=== PATIENT | male | born 1955 | race Caucasian/White ===

== ENCOUNTER 2018-09-02 07:11 | Day surgery (SDC) | payer BC ==
[2018-08-28 14:46] VITALS: BMI 26.1
[~2018-09-02 07:11] MED LIST: LACTATED RINGERS 1,000 ML IV SCH; LIDOCAINE 1% 20 ML VIAL (10MG/ML) FOR IV START INTRADERMA PRN
[2018-09-02 07:44] LABS: Glucose,Whole Blood 184 mg/dL (75-99)
[2018-09-02 07:49] VITALS: RESP 16; TEMP 97.8
[2018-09-02] MEDS ORDERED: MIDAZOLAM 2 MG/2 ML VIAL ONE (08:07)
[2018-09-02] MEDS ORDERED: fentaNYL (PF) 50 MCG/ML 2 ML AMP ONE (08:07)
[2018-09-02] MEDS ORDERED: PROPOFOL 10 MG/ML 20 ML VIAL IV ONE (08:07)
--- NOTE | 2018-09-02 08:21 | P.PCN ---
Date of Procedure: 09/02/18 Procedure(s) Performed: BRIEF HISTORY: Patient is a 63-year-old, pleasant, white male, scheduled for an upper endoscopy with dilation as a part of evaluation of progressive dysphagia to solids for the last few months duration. He had an upper endoscopy dilation done in 2015 cm to have a distal esophageal stricture. PROCEDURE PERFORMED: Esophagogastroduodenoscopy with dilation. PREOPERATIVE DIAGNOSIS: Progressive dysphagia to solids. IV sedation per anesthesia. PROCEDURE: After informed consent was obtained, the patient was brought into the endoscopy unit. IV sedation was administered by Anesthesia under continuous monitoring. Initially the Olympus GIF-140 video endoscope was inserted into the mouth. Esophagus intubated without any difficulty. It was gradually advanced into the stomach and duodenum and carefully examined. The bulb and the second part of the duodenum appeared normal. The scope at this time was withdrawn to the stomach, adequately insufflated with air, and upon careful examination, mucosa of the antrum, body, cardia and the fundus appeared normal. There are multiple gastric polyps noted in the body of the stomach and a biopsy. Also there was retained food in the stomach suggestive of gastroparesis. The scope was then withdrawn into the esophagus. The GE junction was located at 39 cm from the incisors. There was a distal esophageal stricture identified and this was dilated using 15-16.5 mm TTS sequential fashion 60 seconds. Point this there was some oozing identified and hence further dilation was not performed. The rest of the esophagus appeared normal. There were no erosions or ulcerations seen and the patient tolerated the procedure well. IMPRESSION: 1. Distal esophageal stricture status post balloon dilation using 15 and 16.5 mm TTS balloon as described above. 2. Multiple small gastric polyps 3. Retained food in the stomach suggestive of gastroparesis. RECOMMENDATIONS: The findings of this examination were discussed with the patient as well as his family. He will continue with Prilosec 20 mg daily and follow antireflux measures. He will remain on a clear liquid diet today. He was advised to continue on Prilosec 20 mg daily and follow antireflux measures. He'll be seen in the office in 3 months.
[2018-09-02 08:41] VITALS: BP 102/66; PULSE 69
== END 2018-09-02 09:08 | disposition home or self-care (01) ==
LOC: ORWHC2ENDO 07:11
PROVIDERS: ATTEND Internal Medicine Gastroenterology
DX: K22.2 Esophageal obstruction (principal); K31.7 Polyp of stomach and duodenum; K21.0 Gastro-esophageal reflux disease with esophagitis; I10 Essential (primary) hypertension; E11.9 Type 2 diabetes mellitus without complications; Z79.899 Other long term (current) drug therapy; Z79.84 Long term (current) use of oral hypoglycemic drugs
CPT/HCPCS: 43249; 43239; J2250; J3010; J2704; C1726; 88305

== ENCOUNTER 2019-01-21 17:12 | Emergency (ER) | payer BC ==
[2019-01-21 17:18] VITALS: RESP 18
[2019-01-21] MEDS ORDERED: SODIUM CHLORIDE 0.9% 1,000 ML IV STA ×2 (17:34→19:45)
--- NOTE | 2019-01-21 17:55 | ED ---
General Adult HPI - General Chief complaint: Dizziness Stated complaint: Syncope Time Seen by Provider: 01/21/19 17:19 Source: patient, EMS Mode of arrival: EMS Limitations: no limitations - History of Present Illness Initial comments: Dictation was produced using [employer] dictation software. please excuse any grammatical, word or spelling errors. Chief Complaint: 63-year-old male presents with nausea vomiting and presyncope. History of Present Illness: Patient is a 63-year-old male he was brought in by EMS for feelings of presyncope, nausea and vomiting. Patient laid 18 holes of golf via walking. Patient states that about 15 whole he began feeling faint. It was really hot outside. Patient began trying to stay hydrated. Patient is a history of diabetes. He drank several ounces of Gatorade to try to alleviate her symptoms. EMS was called patient is brought to the emergency department. Since being in emergency department patient feels fine. Patient has no other complaints at this time. He feels well currently. The ROS documented in this emergency department record has been reviewed and confirmed by me. Those systems with pertinent positive or negative responses have been documented in the HPI. All other systems are other negative and/or noncontributory. PHYSICAL EXAM: General Impression: Alert and oriented x3, not in acute distress HEENT: Normocephalic atraumatic, extra-ocular movements intact, pupils equal and reactive to light bilaterally, mucous membranes moist. Cardiovascular: Heart regular rate and rhythm, S1&S2 audible, no murmurs, rubs or gallops Chest: Lungs clear to auscultation bilaterally, no rhonchi, no wheeze, no rales Abdomen: Bowel sounds present, abdomen soft, non-tender, non-distended, no organomegaly Musculoskeletal: Pulses present and equal in all extremities, no peripheral edema Motor: no focal deficits noted Neurological: CN II-XII grossly intact, no focal motor or sensory deficits noted Skin: Intact with no visualized rashes Psych: Normal affect and mood ED course: 63-old no clinical presentation consistent with heat exhaustion. As upon arrival are within acceptable limits. Patient is not febrile and vital signs are stable. Mentating appropriately. Physical examination is benign. Patient given 1 L of normal saline. Labs were obtained. Metabolic panel shows creatinine 2.04 with a BUN of 23. Given clinical presentation is concerning for acute kidney injury. Last creatinine was 2013. This is elevated compared to last check. Clinical presentation is concerning for prerenal azotemia. Labs were discussed with patient. He feels comfortable going home to follow-up with his primary care doctor for outpatient management of acute kidney injury. Patient given on the pedal of normal saline. Patient still to maintain good hydration. His report that he can follow up with his primary care physician tomorrow. Patient is understandable and agreeable to disposition. Return parameters discussed. EKG interpretation: Ventricular rate 77, normal sinus rhythm,. Interval 128, QRS duration 84, QTc 441. No DE prolongation, no QTC prolongation, no ST or T- wave changes noted. Overall, this EKG is unremarkable - Related Data Home Medications Medication Instructions Recorded Confirmed Glimepiride [Amaryl] 4 mg PO BID 02/07/14 01/21/19 metFORMIN HCL [metFORMIN HCL ER] 1,000 mg PO BID 02/07/14 01/21/19 Dulaglutide [Trulicity] 1.5 mg SQ CUELLO 08/28/18 01/21/19 Enalapril Maleate [Vasotec] 10 mg PO HS 08/28/18 01/21/19 Hydrochlorothiazide [Hydrodiuril] 25 mg PO DAILY 08/28/18 01/21/19 Omeprazole [PriLOSEC] 20 mg PO AC-BRKFST 08/28/18 01/21/19 Cholecalciferol (Vitamin D3) 2,000 unit PO HS 01/21/19 01/21/19 [Vitamin D3] [place]-3 Fatty Acids/Fish Oil [Fish 1 cap PO HS 01/21/19 01/21/19 Oil 1,000 mg Softgel] Allergies Allergy/AdvReac Type Severity Reaction Status Date / Time No Known Allergies Allergy Verified 01/21/19 18:24 Review of Systems ROS Statement: Those systems with pertinent positive or pertinent negative responses have been documented in the HPI. ROS Other: All systems not noted in ROS Statement are negative. Past Medical History Past Medical History: Diabetes Mellitus, GERD/Reflux, Hypertension, Skin D isorder Additional Past Medical History / Comment(s): diff swallowin/choking on food, psoriasis, History of Any Multi-Drug Resistant Organisms: None Reported Past Surgical History: Appendectomy, Hernia Repair, Tonsillectomy Additional Past Surgical History / Comment(s): colonoscopy Past Anesthesia/Blood Transfusion Reactions: No Reported Reaction Past Psychological History: No Psychological Hx Reported Smoking Status: Never smoker Past Alcohol Use History: None Reported Past Drug Use History: None Reported - Past Family History Sister(s) Family Medical History: Cancer General Exam Limitations: no limitations Course Vital Signs 01/21/19 01/21/19 01/21/19 17:14 17:48 19:02 Temperature 98.4 F Pulse Rate 68 75 72 Respiratory 18 18 18 Rate Blood Pressure 111/65 121/83 152/84 O2 Sat by Pulse 99 98 96 Oximetry Medical Decision Making - Lab Data Result diagrams: 01/21/19 18:56 Lab Results 01/21/19 Range/Units 18:56 Sodium 140 (137-145) mmol/L Potassium 4.1 (3.5-5.1) mmol/L Chloride 103 (98-107) mmol/L Carbon Dioxide 24 (22-30) mmol/L Anion Gap 13 mmol/L BUN 23 H (9-20) mg/dL Creatinine 2.04 H (0.66-1.25) mg/dL Est GFR (CKD-EPI)AfAm 40 (>60 ml/min/1.73 sqM) Est GFR (CKD-EPI)NonAf 34 (>60 ml/min/1.73 sqM) Glucose 297 H (74-99) mg/dL Calcium 9.8 (8.4-10.2) mg/dL Disposition Clinical Impression: Dehydration, Heat exhaustion, MARTITA (acute kidney injury) Disposition: HOME SELF-CARE Condition: Fair Instructions (If sedation given, give patient instructions): Acute Kidney Injury (DC) Is patient prescribed a controlled substance at d/c from ED?: No Referrals: Nikos Vergara MD [Primary Care Provider] - 1-2 days Time of Disposition: 19:47
[2019-01-21 19:27] LABS: Calcium 9.8 mg/dL (8.4-10.2); Potassium 4.1 mmol/L (3.5-5.1)
[2019-01-21 21:18] VITALS: BP 146/82; PULSE 70; TEMP 97.8
== END 2019-01-21 21:18 | disposition home or self-care (01) ==
LOC: EC 17:12
DX: T67.5XXA Heat exhaustion, unspecified, initial encounter (principal); E86.0 Dehydration; N17.9 Acute kidney failure, unspecified; R11.2 Nausea with vomiting, unspecified; E11.9 Type 2 diabetes mellitus without complications; K21.9 Gastro-esophageal reflux disease without esophagitis; I10 Essential (primary) hypertension; Z90.49 Acquired absence of other specified parts of digestive tract; Z98.890 Other specified postprocedural states; Z79.84 Long term (current) use of oral hypoglycemic drugs; Z79.899 Other long term (current) drug therapy
CPT/HCPCS: 36415; 80048; 93005; 96360; 96361; 99284

== ENCOUNTER → 2019-01-28 | Outpatient (CLI) | payer BC ==
[2019-01-28 16:17] LABS: African American GFR (CKD) 106.5 (60.0-200.0); Albumin 4.3 g/dL (3.80-4.90); Albumin/Globulin Ratio 2.26 (1.60-3.17); Anion Gap 7.8 mmol/L (4.00-12.00); BUN/Creat Ratio 17.78 Ratio (12.00-20.00); Calcium 9.3 mg/dL (8.7-10.3); Carbon Dioxide 27.2 mmol/L (21.6-31.8); Globulin 1.9 g/dL (1.6-3.3); Potassium 4.2 mmol/L (3.5-5.5); Total Bilirubin 0.3 mg/dL (0.2-1.2); Total Protein 6.2 g/dL (6.2-8.2)
== END | disposition home or self-care (01) ==
LOC: LABWHC1 10:28
PROVIDERS: ATTEND Family Medicine
DX: N17.9 Acute kidney failure, unspecified (principal)
CPT/HCPCS: 36415; 80053

== ENCOUNTER → 2022-05-06 | Outpatient (CLI) | payer BC ==
[2022-05-06 14:27] LABS: HCT 42.9 % (39.6-50.0); HGB 14.8 g/dL (13.0-17.0); MCH 31.3 pg (27.0-32.0); MCHC 34.5 g/dL (32.0-37.0); MCV 90.7 fL (80.0-97.0); Mean Platelet Volume 9.9 fL (9.5-12.2); NRBC Per 100 WBC 0 /100 WBCS (0.0-0.0); Platelet Count 297 X 10*3/uL (140-440); RBC 4.73 X 10*6/uL (4.40-5.60); RDW 12.6 % (11.5-14.5); WBC 6.18 X 10*3/uL (4.50-10.00)
[2022-05-06 14:30] LABS: ALT 15 U/L (10-49); AST 24 U/L (14-35); African American GFR (CKD) 109.4 (60.0-200.0); Albumin 4.1 g/dL (3.8-4.9); Albumin/Globulin Ratio 1.52 (1.60-3.17); Alkaline Phosphatase 84 U/L (41-126); BUN/Creat Ratio 18.25 Ratio (12.00-20.00); Blood Urea Nitrogen 14.6 mg/dL (9.0-27.0); Calcium 9.5 mg/dL (8.7-10.3); Chloride 102 mmol/L (96-109); Globulin 2.7 g/dL (1.6-3.3); Glucose 195 mg/dL (70-110); Non-African American GFR(CKD) 94.4 (60.0-200.0); Sodium 138 mmol/L (135-145); Total Protein 6.8 g/dL (6.2-8.2)
[2022-05-06 14:31] LABS: Chol/HDL Ratio 4.12 Ratio; VLDL Calculation 11.08 mg/dL (5.00-40.00)
== END | disposition home or self-care (01) ==
LOC: LABWHC1 09:36
PROVIDERS: ATTEND Family Medicine
DX: I10 Essential (primary) hypertension (principal); E11.9 Type 2 diabetes mellitus without complications; E78.00 Pure hypercholesterolemia, unspecified
CPT/HCPCS: 36415; 80053; 80061; 83036; 85027

== ENCOUNTER 2023-10-22 08:59 | Day surgery (SDC) | payer MEDICARE ==
[2023-10-20 14:49] VITALS: BMI 26.9
[2023-10-22] MEDS: LACTATED RINGERS 1,000 ML IV SCH (09:40)
[2023-10-22 09:47] LABS: Glucose,Whole Blood 174 mg/dL (70-110)
[2023-10-22 09:50] VITALS: TEMP 97.9
[2023-10-22] MEDS ORDERED: PROPOFOL 10 MG/ML 20 ML VIAL IV ONE (09:58)
--- NOTE | 2023-10-22 10:13 | P.PCN ---
Date of Procedure: 10/22/23 Procedure(s) Performed: BRIEF HISTORY: Patient is a 68-year-old pleasant white male scheduled for an elective colonoscopy as a part of screening for colon cancer. PROCEDURE PERFORMED: Colonoscopy. PREOPERATIVE DIAGNOSIS: Screening for colon cancer. IV sedation per Anesthesia. PROCEDURE: After informed consent was obtained, the patient, was brought into the endoscopy unit. IV sedation was administered by Anesthesia under continuous monitoring. Digital rectal examination was normal. Initially the Olympus CF-160 flexible video colonoscope was then inserted in the rectum, gradually advanced into the cecum without any difficulty. Careful examination was performed as the scope was gradually being withdrawn. Ileocecal valve and the appendiceal orifice were visualized and appeared normal. Prep was fair.. Mucosa of the cecum, ascending colon, transverse colon, descending colon, sigmoid colon, and rectum appeared normal. Retroflexion was performed in the rectum and no lesions were seen. scattered sigmoid diverticulosis.The patient tolerated the procedure well. IMPRESSION: Normal-appearing colon from rectum to cecum with no evidence of colorectal neoplasia. scattered sigmoid diverticulosis. RECOMMENDATIONS: Findings of this examination were discussed with the patient as well as his family.he was advised to be a high-fiber diet and take fiber supplements a regular basis and have a repeat colonoscopy in 10 years.
[2023-10-22 11:17] VITALS: RESP 18
[2023-10-22] MEDS: ENALAPRILAT 1.25 MG/ML 1 ML VIAL IV ONE (11:50)
[2023-10-22] MEDS: LABETALOL 5 MG/ML VIAL MDV IVP ONE ×2 (12:27→12:57)
[2023-10-22] MEDS ORDERED: hydrALAZINE HCL 20 MG/ML 1 ML VIAL ONE (12:48)
[2023-10-22] MEDS: hydrALAZINE HCL 20 MG/ML 1 ML VIAL IVP ONE (12:57)
[2023-10-22 14:08] VITALS: BP 157/80; PULSE 68
== END 2023-10-22 13:40 | disposition home or self-care (01) ==
LOC: ORWHC2ENDO 08:59
PROVIDERS: ATTEND Internal Medicine Gastroenterology
DX: Z12.11 Encounter for screening for malignant neoplasm of colon (principal); K57.30 Diverticulosis of large intestine without perforation or abscess without bleeding; E11.9 Type 2 diabetes mellitus without complications; L40.9 Psoriasis, unspecified; H40.9 Unspecified glaucoma; K21.9 Gastro-esophageal reflux disease without esophagitis; Z90.49 Acquired absence of other specified parts of digestive tract; Z90.89 Acquired absence of other organs; Z98.890 Other specified postprocedural states; Z79.899 Other long term (current) drug therapy
CPT/HCPCS: J2704; J1920; G0121

== ENCOUNTER 2023-10-22 19:46 | Emergency (ER) | payer MEDICARE ==
[2023-10-22 20:37] VITALS: RESP 18; TEMP 98
--- NOTE | 2023-10-22 22:09 | ED ---
Recheck HPI - General Chief Complaint: Recheck/Abnormal Lab/Rx Stated Complaint: hypertension Time Seen by Provider: 10/22/23 21:44 Source: patient, RN notes reviewed, old records reviewed Mode of arrival: ambulatory Limitations: no limitations - History of Present Illness Initial Comments: This is a 68-year-old male to ER. He presents today for evaluation of some mild anxiety due to recent elevation of blood pressure. Patient's blood pressure is elevated at home and here in the emergency room. Patient is concerned for uncontrolled blood pressure at home concerned that he may have a stroke. Patient has no neurological complaints no headache chest pain shortness of breath abdominal pain no other complaints MD Complaint: abnormal lab (Elevated blood pressure) -: unknown Returns Today for: persistent/worsening pain related to initial visit Symptoms Since Prior Visit: no new symptoms Associated Symptoms: none Treatments Prior to Arrival: other (0) - Related Data Home Medications Medication Instructions Recorded Confirmed Glimepiride [Amaryl] 4 mg PO BID 02/07/14 10/28/23 Omeprazole [PriLOSEC] 20 mg PO AC-BRKFST 08/28/18 10/28/23 Cholecalciferol (Vitamin D3) 2,000 unit PO W/SUPPER 01/21/19 10/28/23 [Vitamin D3] [place]-3 Fatty Acids/Fish Oil [Fish 1 cap PO W/SUPPER 01/21/19 10/28/23 Oil 1,000 mg Softgel] Dorzolamide-Timol 2.23%/0.68% 1 drop BOTH EYES BID 11/08/22 10/28/23 [Cosopt] Latanoprost/Pf [Latanoprost 0.005% 1 drop BOTH EYES HS 11/08/22 10/28/23 Eye Drop] Insulin Glargine,Hum.rec.anlog 15 units SQ BID 10/20/23 10/28/23 [Lantus Solostar Pen] Brimonidine Tartrate [Alphagan P 1 drops BOTH EYES BID 10/28/23 10/28/23 0.2% Ophth Soln] hydrALAZINE HCL [Apresoline] 50 mg PO BID 10/28/23 10/28/23 metFORMIN HCL [Glucophage] 1,000 mg PO BID 10/28/23 10/28/23 Previous Rx's Medication Instructions Recorded Chlorthalidone [Hygroton] 25 mg PO DAILY #30 tab 10/28/23 amLODIPine [Norvasc] 10 mg PO DAILY #30 tab 10/28/23 lisinopriL [Zestril] 40 mg PO DAILY #30 tab 10/28/23 Allergies Allergy/AdvReac Type Severity Reaction Status Date / Time No Known Allergies Allergy Verified 10/28/23 08:53 Review of Systems ROS Statement: Those systems with pertinent positive or pertinent negative responses have been documented in the HPI. ROS Other: All systems not noted in ROS Statement are negative. Past Medical History Past Medical History: Diabetes Mellitus, GERD/Reflux, Skin Disorder Additional Past Medical History / Comment(s): Routine colonoscopy/benign polyp once in the past, NIDDM , glaucoma psoriasis History of Any Multi-Drug Resistant Organisms: None Reported Past Surgical History: Appendectomy, Hernia Repair, Tonsillectomy Additional Past Surgical History / Comment(s): colonoscopies Past Anesthesia/Blood Transfusion Reactions: No Reported Reaction Additional Past Anesthesia/Blood Transfusion Reaction / Comment(s): Pt has never received a blood transfusion. Past Psychological History: No Psychological Hx Reported Smoking Status: Never smoker Past Alcohol Use History: None Reported Past Drug Use History: None Reported - Past Family History Sister(s) Family Medical History: Cancer Additional Family Medical History / Comment(s): cervical General Exam Limitations: no limitations General appearance: anxious Head exam: Present: atraumatic, normocephalic, normal inspection Eye exam: Present: normal appearance, PERRL, EOMI. Absent: scleral icterus, conjunctival injection, periorbital swelling ENT exam: Present: normal exam, mucous membranes moist Neck exam: Present: normal inspection. Absent: tenderness, meningismus, lymphadenopathy Respiratory exam: Present: normal lung sounds bilaterally. Absent: respiratory distress, wheezes, rales, rhonchi, stridor Cardiovascular Exam: Present: regular rate, normal rhythm, normal heart sounds. Absent: systolic murmur, diastolic murmur, rubs, gallop, clicks GI/Abdominal exam: Present: soft, normal bowel sounds. Absent: distended, tenderness, guarding, rebound, rigid Extremities exam: Present: normal inspection, full ROM, normal capillary refill. Absent: tenderness, pedal edema, joint swelling, calf tenderness Back exam: Present: normal inspection Neurological exam: Present: alert, oriented X3, CN II-XII intact Psychiatric exam: Present: normal affect, normal mood Skin exam: Present: warm, dry, intact, normal color. Absent: rash Course Vital Signs 10/22/23 10/22/23 10/22/23 20:11 22:05 23:55 Temperature 98 F Pulse Rate 67 64 62 Respiratory 18 18 18 Rate Blood Pressure 202/81 174/81 165/79 O2 Sat by Pulse 98 97 98 Oximetry 10/23/23 10/23/23 00:02 00:39 Temperature Pulse Rate 69 61 Respiratory 18 18 Rate Blood Pressure 206/92 184/90 O2 Sat by Pulse 98 96 Oximetry - Reevaluation(s) Reevaluation #1: Medical records reviewed Reevaluation #2: Patient symptoms are unchanged Reevaluation #3: Patient informed of results and questions answered Reevaluation #4: Was pt. sent in by a medical professional or institution ([facility] [place], COPPING MACHINE OPERATOR, urgent care, hospital, or half-way...) When possible be specific @ -no Did you speak to anyone other than the patient for history (EMS, parent, family, police, friend...)? What history was obtained from this source @ -no Did you review nursing and triage notes (agree or disagree)? Why? @ -agree Are old charts reviewed (outside hosp., previous admission, EMS record, old EKG, old radiological studies, urgent care reports/EKG's, half-way records)? Report findings @ -yes Differential Diagnosis (chest pain, altered mental status, abdominal pain women, abdominal pain men, vaginal bleeding, weakness, fever, dyspnea, syncope, headache, dizziness, GI bleed, back pain, seizure, CVA, palpatations, mental health, musculoskeletal)? @ -prior EKG interpreted by me (3pts min.). @ -yes X-rays interpreted by me (1pt min.). @ -no CT interpreted by me (1pt min.). @ -no U/S interpreted by me (1pt. min.). @ -no What testing was considered but not performed or refused? (CT, X-rays, U/S, labs)? Why? @ -none What meds were considered but not given or refused? Why? @ -none Did you discuss the management of the patient with other professionals (professionals i.e. Dr., PA, COPPING MACHINE OPERATOR, lab, RT, psych nurse, child protective services social worker, composition teacher, teacher, community service officer, director of casework)? Give summary @ -no Was smoking cessation discussed for >3mins.? @ -no Was critical care preformed (if so, how long)? @ -no Were there social determinants of health that impacted care today? How? (Homelessness, low income, unemployed, alcoholism, drug addiction, transportation, low edu. Level, literacy, decrease access to med. care, detention, rehab)? @ -none Was there de-escalation of care discussed even if they declined (Discuss DNR or withdrawal of care, Hospice)? DNR status @ -no What co-morbidities impacted this encounter? (DM, HTN, Smoking, COPD, CAD, Cancer, CVA, ARF, Chemo, Hep., AIDS, mental health diagnosis, sleep apnea, morbid obesity)? @ -none Was patient admitted / discharged? Hospital course, mention meds given and route, prescriptions, significant lab abnormalities, going to OR and other pertinent info. @ - 68 male with significant hypertension hypertensive urgency. Patient's blood pressure was controlled while here in the ER can be discharged home Discharge Undiagnosed new problem with uncertain prognosis? @ -no Drug Therapy requiring intensive monitoring for toxicity (Heparin, Nitro, Insulin, Cardizem)? @ -no Were any procedures done? @ -no Diagnosis/symptom? @ -Hypertension uncontrolled Acute, or Chronic, or Acute on Chronic? @ -Acute Uncomplicated (without systemic symptoms) or Complicated (systemic symptoms)? @ -Complicated Side effects of treatment? @ -no Exacerbation, Progression, or Severe Exacerbation? @ -exacerbation Poses a threat to life or bodily function? How? (Chest pain, [place], [place], pneumonia, PE, COPD, DKA, ARF, appy, cholecystitis, CVA, Diverticulitis, Homicidal, Suicidal, threat to staff... and all critical care pts) @ -yes significant hypertension Medical Decision Making - Medical Decision Making 68 male with significant hypertension hypertensive urgency. Patient's blood pressure was controlled while here in the ER can be discharged home - Lab Data Result diagrams: 10/22/23 22:07 10/22/23 22:07 Lab Results 10/22/23 10/22/23 10/22/23 Range/Units 22:07 22:07 22:07 WBC 8.2 (3.8-10.6) k/uL RBC 4.63 (4.30-5.90) m/uL Hgb 14.4 (13.0-17.5) gm/dL Hct 42.1 (39.0-53.0) % MCV 90.8 (80.0-100.0) fL MCH 31.1 (25.0-35.0) pg MCHC 34.2 (31.0-37.0) g/dL RDW 12.7 (11.5-15.5) % Plt Count 320 (150-450) k/uL MPV 7.5 Neutrophils % 71 % Lymphocytes % 16 % Monocytes % 9 % Eosinophils % 2 % Basophils % 0 % Neutrophils # 5.9 (1.3-7.7) k/uL Lymphocytes # 1.3 (1.0-4.8) k/uL Monocytes # 0.7 (0-1.0) k/uL Eosinophils # 0.2 (0-0.7) k/uL Basophils # 0.0 (0-0.2) k/uL PT 11.2 (10.0-12.5) sec INR 1.0 (<1.2) APTT 24.8 (22.0-30.0) sec Sodium 134 L (137-145) mmol/L Potassium 4.1 (3.5-5.1) mmol/L Chloride 103 (98-107) mmol/L Carbon Dioxide 24 (22-30) mmol/L Anion Gap 7 mmol/L BUN 18 (9-20) mg/dL Creatinine 0.77 (0.66-1.25) mg/dL Est GFR (CKD-EPI)AfAm >90 (>60 ml/min/1.73 sqM) Est GFR (CKD-EPI)NonAf >90 (>60 ml/min/1.73 sqM) Glucose 321 H (74-99) mg/dL Lactic Ac Sepsis Rflx Plasma Lactic Acid Juan [place] (0.7-2.0) mmol/L Calcium 8.9 (8.4-10.2) mg/dL Phosphorus 3.0 (2.5-4.5) mg/dL Magnesium 1.3 L (1.6-2.3) mg/dL Total Bilirubin 0.4 (0.2-1.3) mg/dL AST 23 (17-59) U/L ALT 20 (4-49) U/L Alkaline Phosphatase 84 (38-126) U/L Troponin I (0.000-0.034) ng/mL NT-Pro-B Natriuret Pep 817 pg/mL Total Protein 6.1 L (6.3-8.2) g/dL Albumin 3.6 (3.5-5.0) g/dL TSH 1.190 (0.465-4.680) mIU/L Urine Color Urine Appearance (Clear) Urine pH (5.0-8.0) Ur Specific [place] (1.001-1.035) Urine Protein (Negative) Urine Glucose (UA) (Negative) Urine Ketones (Negative) Urine Blood (Negative) Urine Nitrite (Negative) Urine Bilirubin (Negative) Urine Urobilinogen (<2.0) mg/dL Ur Leukocyte Esterase (Negative) Urine RBC (0-5) /hpf Urine WBC (0-5) /hpf Urine Mucus (None) /hpf 10/22/23 10/22/23 10/22/23 Range/Units 22:07 22:07 22:46 WBC (3.8-10.6) k/uL RBC (4.30-5.90) m/uL Hgb (13.0-17.5) gm/dL Hct (39.0-53.0) % MCV (80.0-100.0) fL MCH (25.0-35.0) pg MCHC (31.0-37.0) g/dL RDW (11.5-15.5) % Plt Count (150-450) k/uL MPV Neutrophils % % Lymphocytes % % Monocytes % % Eosinophils % % Basophils % % Neutrophils # (1.3-7.7) k/uL Lymphocytes # (1.0-4.8) k/uL Monocytes # (0-1.0) k/uL Eosinophils # (0-0.7) k/uL Basophils # (0-0.2) k/uL PT (10.0-12.5) sec INR (<1.2) APTT (22.0-30.0) sec Sodium (137-145) mmol/L Potassium (3.5-5.1) mmol/L Chloride (98-107) mmol/L Carbon Dioxide (22-30) mmol/L Anion Gap mmol/L BUN (9-20) mg/dL Creatinine (0.66-1.25) mg/dL Est GFR (CKD-EPI)AfAm (>60 ml/min/1.73 sqM) Est GFR (CKD-EPI)NonAf (>60 ml/min/1.73 sqM) Glucose (74-99) mg/dL Lactic Ac Sepsis Rflx Y Plasma Lactic Acid Juan [place] 2.4 H* (0.7-2.0) mmol/L Calcium (8.4-10.2) mg/dL Phosphorus (2.5-4.5) mg/dL Magnesium (1.6-2.3) mg/dL Total Bilirubin (0.2-1.3) mg/dL AST (17-59) U/L ALT (4-49) U/L Alkaline Phosphatase (38-126) U/L Troponin I 0.014 (0.000-0.034) ng/mL NT-Pro-B Natriuret Pep pg/mL Total Protein (6.3-8.2) g/dL Albumin (3.5-5.0) g/dL TSH (0.465-4.680) mIU/L Urine Color Urine Appearance (Clear) Urine pH (5.0-8.0) Ur Specific [place] (1.001-1.035) Urine Protein (Negative) Urine Glucose (UA) (Negative) Urine Ketones (Negative) Urine Blood (Negative) Urine Nitrite (Negative) Urine Bilirubin (Negative) Urine Urobilinogen (<2.0) mg/dL Ur Leukocyte Esterase (Negative) Urine RBC (0-5) /hpf Urine WBC (0-5) /hpf Urine Mucus (None) /hpf 10/23/23 Range/Units 00:01 WBC (3.8-10.6) k/uL RBC (4.30-5.90) m/uL Hgb (13.0-17.5) gm/dL Hct (39.0-53.0) % MCV (80.0-100.0) fL MCH (25.0-35.0) pg MCHC (31.0-37.0) g/dL RDW (11.5-15.5) % Plt Count (150-450) k/uL MPV Neutrophils % % Lymphocytes % % Monocytes % % Eosinophils % % Basophils % % Neutrophils # (1.3-7.7) k/uL Lymphocytes # (1.0-4.8) k/uL Monocytes # (0-1.0) k/uL Eosinophils # (0-0.7) k/uL Basophils # (0-0.2) k/uL PT (10.0-12.5) sec INR (<1.2) APTT (22.0-30.0) sec Sodium (137-145) mmol/L Potassium (3.5-5.1) mmol/L Chloride (98-107) mmol/L Carbon Dioxide (22-30) mmol/L Anion Gap mmol/L BUN (9-20) mg/dL Creatinine (0.66-1.25) mg/dL Est GFR (CKD-EPI)AfAm (>60 ml/min/1.73 sqM) Est GFR (CKD-EPI)NonAf (>60 ml/min/1.73 sqM) Glucose (74-99) mg/dL Lactic Ac Sepsis Rflx Plasma Lactic Acid [place] (0.7-2.0) mmol/L Calcium (8.4-10.2) mg/dL Phosphorus (2.5-4.5) mg/dL Magnesium (1.6-2.3) mg/dL Total Bilirubin (0.2-1.3) mg/dL AST (17-59) U/L ALT (4-49) U/L Alkaline Phosphatase (38-126) U/L Troponin I (0.000-0.034) ng/mL NT-Pro-B Natriuret Pep pg/mL Total Protein (6.3-8.2) g/dL Albumin (3.5-5.0) g/dL TSH (0.465-4.680) mIU/L Urine Color Colorless Urine Appearance Clear (Clear) Urine pH 6.0 (5.0-8.0) Ur Specific [place] 1.032 (1.001-1.035) Urine Protein 2+ H (Negative) Urine Glucose (UA) 4+ H (Negative) Urine Ketones Negative (Negative) Urine Blood Negative (Negative) Urine Nitrite Negative (Negative) Urine Bilirubin Negative (Negative) Urine Urobilinogen <2.0 (<2.0) mg/dL Ur Leukocyte Esterase Negative (Negative) Urine RBC <1 (0-5) /hpf Urine WBC 1 (0-5) /hpf Urine Mucus Rare H (None) /hpf - EKG Data -: EKG Interpreted by Me (EKG is sinus 66 [place] 129 QRS 90 QTc 430) Disposition Clinical Impression: Hypertension, Uncontrolled hypertension Disposition: HOME SELF-CARE Condition: Good Instructions (If sedation given, give patient instructions): Hypertension (ED) Is patient prescribed a controlled substance at d/c from ED?: No Referrals: Nikos Vergara MD [Primary Care Provider] - 1-2 days Time of Disposition: 00:00
[2023-10-22] MEDS: SODIUM CHLORIDE 0.9% 1,000 ML IV STA (22:13)
[2023-10-22 22:43] LABS: Partial Thromboplastin Time 24.8 sec (22.0-30.0); Prothrombin Time 11.2 sec (10.0-12.5)
[2023-10-22 22:44] LABS: ALT 20 U/L (4-49); AST 23 U/L (17-59); African American GFR (CKD) >90 (>60 ml/min/1.73 sqM); Albumin 3.6 g/dL (3.5-5.0); Alkaline Phosphatase 84 U/L (38-126); Anion Gap 7 mmol/L; Blood Urea Nitrogen 18 mg/dL (9-20); Calcium 8.9 mg/dL (8.4-10.2); Carbon Dioxide 24 mmol/L (22-30); Chloride 103 mmol/L (98-107); Glucose 321 mg/dL (74-99); Magnesium 1.3 mg/dL (1.6-2.3); Non-African American GFR(CKD) >90 (>60 ml/min/1.73 sqM); Potassium 4.1 mmol/L (3.5-5.1); Sodium 134 mmol/L (137-145); Total Bilirubin 0.4 mg/dL (0.2-1.3); Total Protein 6.1 g/dL (6.3-8.2)
[2023-10-22 22:52] LABS: NT-Pro-B-Type Natriuretic Pept 817 pg/mL
[2023-10-22 23:13] LABS: Basophils % (A) 0 %; Eosinophils # (A) 0.2 k/uL (0-0.7); Eosinophils % (A) 2 %; HCT 42.1 % (39.0-53.0); HGB 14.4 gm/dL (13.0-17.5); Lymphocytes # (A) 1.3 k/uL (1.0-4.8); Lymphocytes % (A) 16 %; MCH 31.1 pg (25.0-35.0); MCHC 34.2 g/dL (31.0-37.0); MCV 90.8 fL (80.0-100.0); Mean Platelet Volume 7.5; Monocytes # (A) 0.7 k/uL (0-1.0); Monocytes % (A) 9 %; Neutrophils # (A) 5.9 k/uL (1.3-7.7); Neutrophils % (A) 71 %; Platelet Count 320 k/uL (150-450); RBC 4.63 m/uL (4.30-5.90); RDW 12.7 % (11.5-15.5); WBC 8.2 k/uL (3.8-10.6)
[2023-10-23] MEDS: LABETALOL 5 MG/ML VIAL MDV IVP STA (00:14)
[2023-10-23] MEDS: MAGNESIUM OXIDE 400 MG TAB PO STA ×2 (00:15)
[2023-10-23 00:38] LABS: Appearance,Urine Clear (Clear); Bilirubin,Urine Negative (Negative); Blood,Urine Negative (Negative); Color,Urine Colorless; Glucose,Urine (UA) 4+ (Negative); Ketones,Urine Negative (Negative); Leukocyte Esterase,Urine Negative (Negative); Mucus,Urine Rare /hpf; Nitrite,Urine Negative (Negative); Protein,Urine 2+ (Negative); RBC,Urine <1 /hpf (0-5); Specific Gravity,Urine 1.032 (1.001-1.035); Urobilinogen,Urine <2.0 mg/dL (<2.0); WBC,Urine 1 /hpf (0-5)
[2023-10-23 00:45] VITALS: BP 184/90; PULSE 61
== END 2023-10-23 00:50 | disposition home or self-care (01) ==
LOC: EC 19:46
DX: I10 Essential (primary) hypertension (principal)
CPT/HCPCS: 36415; 93005; 83880; 80053; 83605; 83735; 84100; 84443; 84484; 85025; 85610; 85730; 81001; 99283; 96374; 96361 ×3; J1920

== ENCOUNTER 2023-10-27 23:28 | Observation (INO) | payer MEDICARE ==
[2023-10-27] MEDS ORDERED: MORPHINE SULFATE 4 MG/ML SYRINGE IV PRN (23:46)
[2023-10-27] MEDS ORDERED: NALOXONE 0.4 MG/ML 1 ML VIAL IV PRN (23:46)
[2023-10-27] MEDS ORDERED: ONDANSETRON 4 MG/2 ML VIAL IVP PRN (23:46)
--- NOTE | 2023-10-27 23:49 | ED ---
Recheck HPI - General Chief Complaint: Recheck/Abnormal Lab/Rx Stated Complaint: HIGH BP Time Seen by Provider: 10/27/23 23:46 Source: patient, RN notes reviewed, old records reviewed Mode of arrival: ambulatory Limitations: no limitations - History of Present Illness Initial Comments: This is a 68-year-old male with uncontrolled blood pressure. [place] evaluation of elevated blood pressure significantly elevated blood pressure despite outpatient medication management. New blood pressure therapy as well as abortive medications. Patient is asymptomatic despite blood pressure being significantly elevated does have a prior visit to this emergency department a few days ago for same as well as a primary care visit which are proved unsuccessful and unreliable MD Complaint: wound re-check -: days(s) Returns Today for: other (Your concern over persistently elevated blood pressure) Associated Symptoms: none Treatments Prior to Arrival: home treatments - Related Data Home Medications Medication Instructions Recorded Confirmed Glimepiride [Amaryl] 4 mg PO BID 02/07/14 10/22/23 metFORMIN HCL [metFORMIN HCL ER] 1,000 mg PO BID 02/07/14 10/22/23 Enalapril Maleate [Vasotec] 10 mg PO HS 08/28/18 10/22/23 Omeprazole [PriLOSEC] 20 mg PO AC-BRKFST 08/28/18 10/22/23 Cholecalciferol (Vitamin D3) 2,000 unit PO W/SUPPER 01/21/19 10/20/23 [Vitamin D3] [place]-3 Fatty Acids/Fish Oil [Fish 1 cap PO W/SUPPER 01/21/19 10/20/23 Oil 1,000 mg Softgel] Brimonidine Partake 2.5 mg BOTH EYES BID 11/08/22 10/20/23 Dorzolamide-Timol 2.23%/0.68% 1 drop BOTH EYES BID 11/08/22 10/20/23 [Cosopt] Latanoprost/Pf [Latanoprost 0.005% 1 drop BOTH EYES HS 11/08/22 10/20/23 Eye Drop] Insulin Glargine,Hum.rec.anlog 15 units SQ BID 10/20/23 10/22/23 [Lantus Solostar Pen] Allergies Allergy/AdvReac Type Severity Reaction Status Date / Time No Known Allergies Allergy Verified 10/27/23 23:40 Review of Systems ROS Statement: Those systems with pertinent positive or pertinent negative responses have been documented in the HPI. ROS Other: All systems not noted in ROS Statement are negative. Past Medical History Past Medical History: Diabetes Mellitus, GERD/Reflux, Skin Disorder Additional Past Medical History / Comment(s): Routine colonoscopy/benign polyp once in the past, NIDDM , glaucoma psoriasis History of Any Multi-Drug Resistant Organisms: None Reported Past Surgical History: Appendectomy, Hernia Repair, Tonsillectomy Additional Past Surgical History / Comment(s): colonoscopies Past Anesthesia/Blood Transfusion Reactions: No Reported Reaction Additional Past Anesthesia/Blood Transfusion Reaction / Comment(s): Pt has never received a blood transfusion. Past Psychological History: No Psychological Hx Reported Smoking Status: Never smoker Past Alcohol Use History: None Reported Past Drug Use History: None Reported - Past Family History Sister(s) Family Medical History: Cancer Additional Family Medical History / Comment(s): cervical General Exam Limitations: no limitations General appearance: alert, in no apparent distress Head exam: Present: atraumatic, normocephalic, normal inspection Eye exam: Present: normal appearance, PERRL, EOMI. Absent: scleral icterus, conjunctival injection, periorbital swelling ENT exam: Present: normal exam, mucous membranes moist Neck exam: Present: normal inspection. Absent: tenderness, meningismus, lymphadenopathy Respiratory exam: Present: normal lung sounds bilaterally. Absent: respiratory distress, wheezes, rales, rhonchi, stridor Cardiovascular Exam: Present: regular rate, normal rhythm, normal heart sounds. Absent: systolic murmur, diastolic murmur, rubs, gallop, clicks GI/Abdominal exam: Present: soft, normal bowel sounds. Absent: distended, tenderness, guarding, rebound, rigid Extremities exam: Present: normal inspection, full ROM, normal capillary refill. Absent: tenderness, pedal edema, joint swelling, calf tenderness Back exam: Present: normal inspection Neurological exam: Present: alert, oriented X3, CN II-XII intact Psychiatric exam: Present: normal affect, normal mood Skin exam: Present: warm, dry, intact, normal color. Absent: rash Course Vital Signs 10/27/23 23:37 Pulse Rate 65 Respiratory 18 Rate Blood Pressure 209/87 O2 Sat by Pulse 100 Oximetry - Reevaluation(s) Reevaluation #1: 10/27/23 23:48 Medical records reviewed Reevaluation #2: 10/27/23 23:48 Blood pressure remains uncontrolled Reevaluation #3: 10/27/23 23:48 Patient informed of results and questions answered Reevaluation #4: Was pt. sent in by a medical professional or institution ([facility] [place], [facility], urgent care, hospital, or senior living...) When possible be specific @ -no Did you speak to anyone other than the patient for history (EMS, parent, family, police, friend...)? What history was obtained from this source @ -no Did you review nursing and triage notes (agree or disagree)? Why? @ -agree Are old charts reviewed (outside hosp., previous admission, EMS record, old EKG, old radiological studies, urgent care reports/EKG's, senior living records)? Report findings @ -yes Differential Diagnosis (chest pain, altered mental status, abdominal pain women, abdominal pain men, vaginal bleeding, weakness, fever, dyspnea, syncope, headache, dizziness, GI bleed, back pain, seizure, CVA, palpatations, mental health, musculoskeletal)? @ -prior EKG interpreted by me (3pts min.). @ -yes X-rays interpreted by me (1pt min.). @ -yes negative for acute disease CT interpreted by me (1pt min.). @ -no U/S interpreted by me (1pt. min.). @ -no What testing was considered but not performed or refused? (CT, X-rays, U/S, labs)? Why? @ -none What meds were considered but not given or refused? Why? @ -none Did you discuss the management of the patient with other professionals (professionals i.e. , [facility], [facility], lab, RT, psych nurse, secondary social studies teacher, director speech, teacher, senior escrow officer, case advocate)? Give summary @ -no Was smoking cessation discussed for >3mins.? @ -no Was critical care preformed (if so, how long)? @ -no Were there social determinants of health that impacted care today? How? (Homelessness, low income, unemployed, alcoholism, drug addiction, transportation, low edu. Level, literacy, decrease access to med. care, usp, rehab)? @ -none Was there de-escalation of care discussed even if they declined (Discuss DNR or withdrawal of care, Hospice)? DNR status @ -no What co-morbidities impacted this encounter? (DM, HTN, Smoking, COPD, CAD, Cancer, CVA, ARF, Chemo, Hep., AIDS, mental health diagnosis, sleep apnea, morbid obesity)? @ -none Was patient admitted / discharged? Hospital course, mention meds given and route, prescriptions, significant lab abnormalities, going to OR and other pertinent info. @ - Undiagnosed new problem with uncertain prognosis? @ -no Drug Therapy requiring intensive monitoring for toxicity (Heparin, Nitro, Insulin, Cardizem)? @ -no Were any procedures done? @ -no Diagnosis/symptom? @ - Acute, or Chronic, or Acute on Chronic? @ -Acute Uncomplicated (without systemic symptoms) or Complicated (systemic symptoms)? @ -Complicated Side effects of treatment? @ -no Exacerbation, Progression, or Severe Exacerbation? @ -exacerbation Poses a threat to life or bodily function? How? (Chest pain, USA, NM, pneumonia, PE, COPD, DKA, ARF, appy, cholecystitis, CVA, Diverticulitis, Homicidal, S uicidal, threat to staff... and all critical care pts) @ -yes - Consultations Consultation #1: Spoke with [facility] who agrees to admit this patient Medical Decision Making - Medical Decision Making 68 male to ER for uncontrolled blood pressure multiple ER visits as well as recent primary care visit for same. Patient will be admitted for further evaluation and blood pressure control, IV medications with transition to p.o. Disposition Clinical Impression: Hypertension, Uncontrolled hypertension Disposition: ADMITTED IP TO THIS HOSP Condition: Fair Is patient prescribed a controlled substance at d/c from ED?: No Referrals: Nikos Vergara MD [Primary Care Provider] - 1-2 days Time of Disposition: 23:55
--- NOTE | 2023-10-28 00:41 | XR ---
EXAM: XR Chest, 2 Views CLINICAL HISTORY: Chest Pain TECHNIQUE: Frontal and lateral views of the chest. COMPARISON: Chest 2 views dated 02/07/2014 FINDINGS: Lungs: No focal airspace consolidation. Curvilinear changes in the right infrahilar region are not confirmed in the lateral projection and are presumed confluence of vascular structures. The pulmonary vasculature demonstrates no significant radiographic abnormality. Pleural space: Unremarkable. No pneumothorax. No large pleural effusion. Heart: Unremarkable. No cardiomegaly. Mediastinum: The mediastinal contours are stable. The trachea is midline. Bones/joints: Unremarkable. No acute fracture. IMPRESSION: No acute cardiopulmonary process or significant alteration from the prior examination.
[2023-10-28] MEDS: SODIUM CHLORIDE 0.9% 1,000 ML IV SCH (01:00)
[2023-10-28] MEDS: amLODIPine 10 MG TAB PO STA (01:01)
[2023-10-28] MEDS: LABETALOL 5 MG/ML VIAL MDV IVP STA (01:01)
[2023-10-28 01:03] LABS: Basophils % (A) 1 %; Eosinophils # (A) 0.3 k/uL (0-0.7); Eosinophils % (A) 4 %; HCT 42.7 % (39.0-53.0); HGB 14.1 gm/dL (13.0-17.5); Lymphocytes # (A) 1.5 k/uL (1.0-4.8); Lymphocytes % (A) 20 %; MCH 30.4 pg (25.0-35.0); MCHC 33.1 g/dL (31.0-37.0); Mean Platelet Volume 8.4; Monocytes # (A) 0.6 k/uL (0-1.0); Monocytes % (A) 8 %; Neutrophils % (A) 66 %; Platelet Count 319 k/uL (150-450); RBC 4.64 m/uL (4.30-5.90); RDW 12.9 % (11.5-15.5); WBC 7.5 k/uL (3.8-10.6)
[2023-10-28 01:15] LABS: Partial Thromboplastin Time 25.8 sec (22.0-30.0); Prothrombin Time 10.6 sec (10.0-12.5)
[2023-10-28 01:20] LABS: ALT 15 U/L (4-49); AST 20 U/L (17-59); African American GFR (CKD) >90 (>60 ml/min/1.73 sqM); Albumin 3.6 g/dL (3.5-5.0); Alkaline Phosphatase 73 U/L (38-126); Anion Gap 3 mmol/L; Blood Urea Nitrogen 15 mg/dL (9-20); Calcium 9.2 mg/dL (8.4-10.2); Carbon Dioxide 27 mmol/L (22-30); Chloride 105 mmol/L (98-107); Glucose 288 mg/dL (74-99); Magnesium 1.3 mg/dL (1.6-2.3); Non-African American GFR(CKD) >90 (>60 ml/min/1.73 sqM); Potassium 3.8 mmol/L (3.5-5.1); Sodium 135 mmol/L (137-145); Total Bilirubin 0.3 mg/dL (0.2-1.3); Total Protein 6.2 g/dL (6.3-8.2)
[2023-10-28] MEDS ORDERED: DEXTROSE 50% SYRINGE 50 ML IVP PRN ×2 (04:37)
[2023-10-28] MEDS ORDERED: ACETAMINOPHEN TAB 325 MG TAB PO PRN (04:38)
[2023-10-28] MEDS ORDERED: MELATONIN 3 MG TABLET PO PRN (04:38)
[2023-10-28] MEDS ORDERED: NALOXONE 0.4 MG/ML 1 ML VIAL IV PRN (04:38)
[2023-10-28] MEDS ORDERED: MAG HYDROX/AL HYDROX/SIMETH 30 ML CUP PO PRN (04:38)
[2023-10-28 08:35] LABS: Glucose,Whole Blood 75 mg/dL (70-110)
[2023-10-28] MEDS: amLODIPine 10 MG TAB PO SCH (08:48)
[2023-10-28] MEDS: INSULIN ASPART (NovoLOG) 100 UNIT/ML VIAL SQ SCH (08:50)
[2023-10-28] MEDS ORDERED: METOPROLOL TARTRATE 25 MG TAB PO SCH (09:00)
[2023-10-28 12:04] LABS: Glucose,Whole Blood 111 mg/dL (70-110)
--- NOTE | 2023-10-28 12:04 | P.CRDCN ---
History of Present Illness Consult date: 10/28/23 Consult reason: hypertension (Uncontrolled) History of present illness: History of present illness: This is a 68-year-old male with past medical history of hypertension, diabetes, hyperlipidemia, gastroesophageal reflux disease. We have been asked to evaluate the patient for uncontrolled hypertension.Patient states that he has had elevated BP reading over the last week and his PCP has been making adjustments. Yesterday, hydralazine was increased but SBP remained in the 200s and he came into the ER. Initial blood pressure of 209/87. Patient is status post 1 dose of amlodipine 10 mg, 1 dose of labetalol 20 mg IV push. Patient states he had a recent cold symptoms about 2 or more weeks ago and was treated with a Z-Uriah. No fever or chills now. No cough. Patient is seen today in the emergency center waiting for a bed on the cardiac stepdown unit. No history of smoking, no drug or marijuana use, no alcohol abuse. EKG sinus rhythm with no acute ST-T wave changes. Chest x-ray: No acute cardiopulmonary process. CBC, INR, electrolytes and renal function unremarkable. Glucose 288. Magnesium 1.3. Troponin negative x 1. Liver function test are normal. TSH is 1.96. Home cardiac medications: Clonidine 0.1 mg 3 times daily as needed, enalapril 10 mg twice daily, hydralazine 50 mg twice daily. Review Of Systems: At the time of my exam: CONSTITUTIONAL: Denies fever or chills. HEENT: Denies blurred vision, vision changes, or eye pain. Denies hemoptysis CARDIOVASCULAR: Denies chest pain. Denies orthopnea. Denies PND. Denies palp itations RESPIRATORY: Denies shortness of breath. GASTROINTESTINAL: Denies abdominal pain. Denies nausea or vomiting. HEMATOLOGIC: Denies bleeding disorders. GENITOURINARY: Denies any blood in urine. SKIN: Denies pruitis. Denies rash. Physical examination: Gen: This is a 68-year-old male in no acute distress VS: reviewed blood pressure 162/82, heart rate 57, pulse ox 96% on room air. HEENT: Head is atraumatic, normocephalic. Pupils equal, round. Sclerae is anicteric. NECK: Supple. No JVD. LUNGS: Clear to auscultation. No wheezes or rhonchi. No intercostal retractions. HEART: Regular rate and rhythm. No murmur. ABDOMEN: Soft No tenderness. EXTREMITIES: No pedal edema. No calf tenderness. NEUROLOGICAL: Patient is awake, alert and oriented x3. Assessment: Uncontrolled hypertension Diabetes mellitus type 2 Hyperlipidemia Gastroesophageal reflux disease Plan: Continue patient's home cardiac medications Start patient on hydrochlorothiazide Obtain 2-D echocardiogram and Doppler study to assess cardiac structure and function Obtain aldosterone, cortisol, renin levels Obtain renal artery US to rule out ADRY If blood pressure is well-controlled in the afternoon, patient is cleared from cardiology for discharge. He has been advised to follow a low-salt diet. Patient may follow up with Dr. Messina or a composition siding worker of his choice in 1-2 weeks. Thank you kindly for this consultation. Nurse practitioner note has been reviewed, I agree with documented findings and plan of care. Patient was seen and examined. Past Medical History Past Medical History: Diabetes Mellitus, GERD/Reflux, Skin Disorder Additional Past Medical History / Comment(s): Routine colonoscopy/benign polyp once in the past, NIDDM , glaucoma psoriasis History of Any Multi-Drug Resistant Organisms: None Reported Past Surgical History: Appendectomy, Hernia Repair, Tonsillectomy Additional Past Surgical History / Comment(s): colonoscopies Past Anesthesia/Blood Transfusion Reactions: No Reported Reaction Additional Past Anesthesia/Blood Transfusion Reaction / Comment(s): Pt has never received a blood transfusion. Past Psychological History: No Psychological Hx Reported Smoking Status: Never smoker Past Alcohol Use History: None Reported Past Drug Use History: None Reported - Past Family History Sister(s) Family Medical History: Cancer Additional Family Medical History / Comment(s): cervical Medications and Allergies Home Medications Medication Instructions Recorded Confirmed Type Glimepiride [Amaryl] 4 mg PO BID 02/07/14 10/28/23 History Enalapril Maleate [Vasotec] 10 mg PO BID 08/28/18 10/28/23 History Omeprazole [PriLOSEC] 20 mg PO AC-BRKFST 08/28/18 10/28/23 History Cholecalciferol (Vitamin D3) 2,000 unit PO W/SUPPER 01/21/19 10/28/23 History [Vitamin D3] [place]-3 Fatty Acids/Fish Oil [Fish 1 cap PO W/SUPPER 01/21/19 10/28/23 History Oil 1,000 mg Softgel] Dorzolamide-Timol 2.23%/0.68% 1 drop BOTH EYES BID 11/08/22 10/28/23 History [Cosopt] Latanoprost/Pf [Latanoprost 0.005% 1 drop BOTH EYES HS 11/08/22 10/28/23 History Eye Drop] Insulin Glargine,Hum.rec.anlog 15 units SQ BID 10/20/23 10/28/23 History [Lantus Solostar Pen] Brimonidine Tartrate [Alphagan P 1 drops BOTH EYES BID 10/28/23 10/28/23 History 0.2% Ophth Soln] hydrALAZINE HCL [Apresoline] 50 mg PO BID 10/28/23 10/28/23 History metFORMIN HCL [Glucophage] 1,000 mg PO BID 10/28/23 10/28/23 History Allergies Allergy/AdvReac Type Severity Reaction Status Date / Time No Known Allergies Allergy Verified 10/28/23 08:53 Physical Exam Vitals: Vital Signs Pulse Resp BP Pulse Ox 10/28/23 08:38 57 L 16 186/86 96 10/28/23 06:00 60 16 137/71 96 10/28/23 05:00 56 L 18 145/77 96 10/28/23 04:00 55 L 16 139/77 98 10/28/23 03:30 54 L 9 L 148/74 97 10/28/23 03:00 53 L 18 169/85 96 10/28/23 02:30 55 L 16 169/83 96 10/28/23 01:30 56 L 20 183/103 97 10/28/23 01:00 56 L 21 186/93 97 10/28/23 00:45 58 L 18 198/90 98 10/28/23 00:40 58 L 14 198/90 97 10/28/23 00:30 58 L 12 187/87 98 10/28/23 00:05 70 18 202/93 99 10/27/23 23:37 65 18 209/87 100 Intake and Output 10/27/23 10/28/23 10/28/23 22:59 06:59 14:59 Other: Weight 80.286 kg Results 10/28/23 00:00 10/28/23 00:00 Cardiac Enzymes 10/28/23 10/28/23 Range/Units 00:00 00:00 AST 20 (17-59) U/L Troponin I <0.012 (0.000-0.034) ng/mL Coagulation 10/28/23 Range/Units 00:00 PT 10.6 (10.0-12.5) sec APTT 25.8 (22.0-30.0) sec CBC 10/28/23 Range/Units 00:00 WBC 7.5 (3.8-10.6) k/uL RBC 4.64 (4.30-5.90) m/uL Hgb 14.1 (13.0-17.5) gm/dL Hct 42.7 (39.0-53.0) % Plt Count 319 (150-450) k/uL Comprehensive Metabolic Panel 10/28/23 Range/Units 00:00 Sodium 135 L (137-145) mmol/L Potassium 3.8 (3.5-5.1) mmol/L Chloride 105 (98-107) mmol/L Carbon Dioxide 27 (22-30) mmol/L BUN 15 (9-20) mg/dL Creatinine 0.67 (0.66-1.25) mg/dL Glucose 288 H (74-99) mg/dL Calcium 9.2 (8.4-10.2) mg/dL AST 20 (17-59) U/L ALT 15 (4-49) U/L Alkaline Phosphatase 73 (38-126) U/L Total Protein 6.2 L (6.3-8.2) g/dL Albumin 3.6 (3.5-5.0) g/dL Current Medications Generic Name Dose Route Start Last Admin Trade Name Freq PRN Reason Stop Dose Admin Acetaminophen 650 mg 10/28/23 04:38 Acetaminophen Tab 325 Mg Tab PO Q6HR PRN Mild Pain or Fever > 100.5 Al Hydroxide/Mg Hydroxide 15 ml 10/28/23 04:38 Mag Hydrox/Al Hydrox/Simeth 30 Ml Cup PO Q6HR PRN Indigestion Amlodipine Besylate 10 mg 10/28/23 09:00 10/28/23 08:48 Amlodipine 10 Mg Tab PO 10 mg DAILY STONEY Administration Dextrose/Water 25 ml 10/28/23 04:37 Dextrose 50% Syringe 50 Ml IVP PER PROTOCOL PRN Hypoglycemia Protocol Dextrose/Water 50 ml 10/28/23 04:37 Dextrose 50% Syringe 50 Ml IVP PER PROTOCOL PRN Hypoglycemia Protocol Sodium Chloride 1,000 mls @ 75 mls/hr 10/27/23 23:45 10/28/23 01:00 Saline 0.9% IV 75 mls/hr .[id number] STONEY Administration Insulin Aspart 0 unit 10/28/23 07:30 10/28/23 08:50 Insulin Aspart (Novolog) 100 Unit/Ml Vial SQ Not Given ACHS [facility] Protocol Melatonin 3 mg 10/28/23 04:38 Melatonin 3 Mg Tablet PO HS PRN Insomnia Morphine Sulfate 4 mg 10/27/23 23:46 Morphine Sulfate 4 Mg/Ml Syringe IV Q4HR PRN Severe Pain (Scale 7 to 10) Naloxone HCl 0.2 mg 10/27/23 23:46 Naloxone 0.4 Mg/Ml 1 Ml Vial IV Q2M PRN Opioid Reversal Naloxone HCl 0.2 mg 10/28/23 04:38 Naloxone 0.4 Mg/Ml 1 Ml Vial IV Q2M PRN Opioid Reversal Ondansetron HCl 4 mg 10/27/23 23:46 Ondansetron 4 Mg/2 Ml Vial IVP Q8HR PRN Nausea And Vomiting Intake and Output 10/27/23 10/28/23 10/28/23 22:59 06:59 14:59 Other: Weight 80.286 kg 10/28/23 00:00 10/28/23 00:00
[2023-10-28] MEDS: lisinopriL 20 MG TAB PO SCH (12:24)
[2023-10-28] MEDS: CHLORTHALIDONE 25 MG TAB PO SCH (12:24)
[2023-10-28] MEDS: hydrALAZINE HCL 50 MG TAB PO SCH ×2 (12:24→16:51)
[2023-10-28] MEDS: MAGNESIUM SULFATE-D5W PMX 1 GM in DEXTROSE/WATER 1 100ML.BAG IVPB SCH (13:35)
[2023-10-28 14:15] VITALS: RESP 16
[2023-10-28] MEDS ORDERED: hydrALAZINE HCL 50 MG TAB PO SCH (14:45)
--- NOTE | 2023-10-28 15:20 | CA ---
Transthoracic Echo Report Name: Pedro Calero Age: 68 Gender: M : 1955 Exam Date: 10/28/2023 07:56 Exam Location: [facility] Ht (in): 66 Wt (lb): 175 Ordering Physician: Kemar Baez MD Attending/Referring Phys: Paper Counter Luh Reyna RDCS Procedure CPT: Indications: uncontrolled HTN Cardiac Hx: Technical Quality: Fair Contrast 1: Total Dose (mL): Contrast 2: Total Dose (mL): MEASUREMENTS (Male / Female) Normal Values 2D ECHO LV Diastolic Diameter PLAX 5.1 cm 4.2 - 5.9 / 3.9 - 5.3 cm LV Systolic Diameter PLAX 3.6 cm IVS Diastolic Thickness 0.9 cm 0.6 - 1.0 / 0.6 - 0.9 cm LVPW Diastolic Thickness 1.0 cm 0.6 - 1.0 / 0.6 - 0.9 cm LV Relative Wall Thickness 0.4 RV Internal Dim ED PLAX 2.1 cm LA Systolic Diameter LX 4.0 cm 3.0 - 4.0 / 2.7 - 3.8 cm LV Diastolic Volume MOD BP 88.4 cm??? 67 - 155 / 56 - 104 cm??? LV Systolic Volume MOD BP 48.5 cm??? 22 - 58 / 19 - 49 cm??? LV Ejection Fraction MOD BP 45.2 % >= 55 % LV Cardiac Index MOD BP 1130.3 cm???/min???m??? LV Diastolic Volume MOD 4C 91.1 cm??? LV Systolic Volume MOD 4C 40.0 cm??? LV Ejection Fraction MOD 4C 56.1 % LV Cardiac Index MOD 4C 1446.9 cm???/min???m??? LV Diastolic Length 4C 8.2 cm LV Systolic Length 4C 7.1 cm LV Diastolic Volume MOD 2C 76.8 cm??? LV Systolic Volume MOD 2C 36.6 cm??? LV Ejection Fraction MOD 2C 52.3 % LV Cardiac Index MOD 2C 1137.7 cm???/min???m??? LV Diastolic Length 2C 7.4 cm LV Systolic Length 2C 6.5 cm LA Volume 65.1 cm??? 18 - 58 / 22 - 52 cm??? LA Volume Index 33.5 cm???/m??? 16 - 28 cm???/m??? M-MODE Aortic Root Diameter MM 3.1 cm LA Systolic Diameter MM 3.1 cm LA Ao Ratio MM 1.0 AV Cusp Separation MM 1.7 cm DOPPLER AV Peak Velocity 134.5 cm/s AV Peak Gradient 7.2 mmHg AI Peak Velocity 260.9 cm/s AI Peak Gradient 27.2 mmHg AI Pressure Half Time 1158.0 ms MV Area PHT 2.2 cm??? Mitral E Point Velocity 99.2 cm/s Mitral A Point Velocity 107.1 cm/s Mitral E to A Ratio 0.9 MV Deceleration Time 348.1 ms TR Peak Velocity 238.7 cm/s TR Peak Gradient 22.8 mmHg Right Ventricular Systolic Press 26.8 mmHg FINDINGS Left Ventricle Left ventricular ejection fraction is estimated at 55-60 % .Left ventricular cavity size normal.Normal left ventricular systolic function with no obvious regional wall motion abnormalities. Right Ventricle Normal right ventricular size and function. Right ventricular systolic pressure within normal limits. Right Atrium Normal right atrial size. Left Atrium Mildly increased left atrial volume. Mitral Valve Structurally normal mitral valve. Mild mitral regurgitation. No mitral stenosis. Aortic Valve Trileaflet aortic valve. No aortic stenosis. Mild aortic regurgitation. Tricuspid Valve Structurally normal tricuspid valve. Mild tricuspid regurgitation. No tricuspid stenosis. Pulmonic Valve Structurally normal pulmonic valve. No pulmonic stenosis. Trace pulmonic regurgitation. Pericardium No pericardial or pleural effusion. Aorta Normal size aortic root and proximal ascending aorta. CONCLUSIONS Normal LV size and systolic function Previewed by: Dr. Cortes Dale MD (Electronically Signed) Final Date: 28 October 2023 15:19
[2023-10-28 18:29] VITALS: BP 169/82; PULSE 67
== END 2023-10-28 18:06 | disposition home or self-care (01) ==
LOC: EC 23:28 → 3SCARD 23:47
PROVIDERS: ADMIT Internal Medicine; ATTEND Internal Medicine
DX: I10 Essential (primary) hypertension (principal); E11.9 Type 2 diabetes mellitus without complications; K21.9 Gastro-esophageal reflux disease without esophagitis; E78.5 Hyperlipidemia, unspecified; Z79.4 Long term (current) use of insulin; Z79.84 Long term (current) use of oral hypoglycemic drugs; Z79.899 Other long term (current) drug therapy
CPT/HCPCS: 96365; 96366; 96375; 99284; 93005; 93306; 80053; 84443; 82533; 82088; 84244; 83735; 84484; 85025; 85610; 85730; 71046; G0378 ×2; J3475; J1920